=== PATIENT | female | born 1990 | race Caucasian/White ===

== ENCOUNTER 2018-12-04 15:29 | Emergency (ER) | payer OTHER ==
[~2018-12-04] VITALS: Ht 170.2 cm; Wt 44.5 kg
[2018-12-04 15:58] VITALS: BP 120/64
== END 2018-12-04 16:42 | disposition home or self-care (01) ==
LOC: ER 15:32
DX: O20.0 Threatened abortion (principal); Z3A.16 16 weeks gestation of pregnancy
CPT/HCPCS: 76805